=== PATIENT | female | born 1945 | race Caucasian/White ===

== ENCOUNTER → 2016-12-15 | Outpatient (CLI) | payer MEDICARE, OTHER ==
--- NOTE | 2016-12-15 10:31 | RADIOLOGY REPORT (SQ) ---
EXAM DESCRIPTION: MRI HEAD COMBO COMPLETED DATE/TIME: 12/15/2016 9:27 am REASON FOR STUDY: DISORIENTATION/CONFUSION R41.0 DISORIENTATION, UNSPECIFIED COMPARISON: None. TECHNIQUE: Multiplanar imaging includes noncontrasted T1, T2, FLAIR, and Diffusion with ADC map seq uences. Contrast enhanced T1 images. Images stored on PACS. CONTRAST TYPE AND DOSE: 15 mL Multihance. RENAL FUNCTION: GFR > 60. LIMITATIONS: None. FINDINGS: ANATOMY: No anomalies. Normal vascular flow voids. Pituitary fossa normal. CSF SPACES: Normal size and contour. No hemorrhage. CEREBRUM: A few high-signal intensity lesions scattered throughout the white matter on FLAIR imaging with distribution suggesting chronic microvascular ischemic change. Sulci and gyri normal in size and contour. No evidence of hemorrhage, mass or extraaxial fluid collection. No enhancing lesions. POSTERIOR FOSSA: No signal alteration. No hemorrhage. No edema, masses or mass effect. Internal audit ory canals, cerebello-pontine angles, mastoids normal. DIFFUSION: Negative for acute or subacute infarction. ORBITS: No masses. Globes normal. PARANASAL SINUSES: No fluid levels. Mucosa normal. OTHER: No other significant finding. IMPRESSION: NO ENHANCING LESIONS. MINIMAL MICROVASCULAR ISCHEMIC CHANGE. OTHERWISE NORMAL STUDY. EVIDENCE OF ACUTE STROKE: NO. TECHNICAL DOCUMENTATION: JOB ID: [id number] [employer]- All Rights Reserved
== END ==
LOC: RAD 07:57
PROVIDERS: ATTEND Internal Medicine
DX: R41.0 Disorientation, unspecified (principal); R41.82 Altered mental status, unspecified
CPT/HCPCS: 70553; A9577

== ENCOUNTER → 2016-12-21 | Outpatient (CLI) | payer MEDICARE, OTHER ==
--- NOTE | 2016-12-22 09:35 | RADIOLOGY REPORT (SQ) ---
EXAM DESCRIPTION: PET CT SKULL/THIGH COMPLETED DATE/TIME: 12/21/2016 8:18 pm REASON FOR STUDY: SOLITARY PULMONARY NODULE R91.1 SOLITARY PULMONARY NODULE COMPARISON: None. RADIONUCLIDE AND DOSE: 12.0 mCi F18 FDG The route of agent administration: Intravenous FASTING BLOOD SUGAR: 93 mg/dl CONTRAST TYPE AND DOSE: No CT contrast given. TECHNIQUE: Blood glucose level was verified. Above dose of FDG was injected intravenously. 2-D seg mented attenuation correction images were obtained from the base of the skull to the midthighs. Nonc ontrast CT images were obtained for attenuation correction and fusion with emission images. CT image s were performed without oral or intravenous contrast and are not sensitive for parenchymal lesions. A series of overlapping emission PET images were obtained. [facility] by the radiologist. Images stored on PACS. LIMITATIONS: None. FINDINGS: HEAD AND NECK: No areas of abnormal metabolic activity in the soft tissues of the head and neck. CHEST: No areas of abnormal metabolic activity in the chest. Indistinct 1.3 cm ground-glass opacity in the right upper lobe without increased metabolic activity. This could be partial volume averaging through the fissure. No other significant pulmonary lesions. ABDOMEN AND PELVIS: No areas of abnormal metabolic activity in the abdomen or pelvis. Expected physi ologic activity is present in the genitourinary system and bowel. PROXIMAL LOWER EXTREMITIES: No areas of abnormal metabolic activity in the soft tissues of the lower extremities. BONES: No abnormal metabolic activity in the visualized skeleton. ADDITIONAL CT FINDINGS: No additional significant findings on the noncontrast CT images. OTHER: No other significant findings. IMPRESSION: UNREMARKABLE PET SCAN. NO HYPERMETABOLIC LESIONS. FAINT GROUND-GLASS OPACITY IN THE RI GHT LUNG, NON METABOLIC. NO OTHER SIGNIFICANT FINDINGS TECHNICAL DOCUMENTATION: JOB ID: [id number]- All Rights Reserved
== END ==
LOC: RAD 18:00
PROVIDERS: ATTEND Internal Medicine
DX: R91.1 Solitary pulmonary nodule (principal); J98.4 Other disorders of lung
CPT/HCPCS: 78815; A9552

== ENCOUNTER → 2017-12-24 | Outpatient (CLI) | payer MEDICARE, OTHER ==
--- NOTE | 2017-12-24 10:18 | RADIOLOGY REPORT (SQ) ---
EXAM DESCRIPTION: CT CHEST WITH COMPLETED DATE/TIME: 12/24/2017 8:10 am REASON FOR STUDY: PULMONARY NODULE (R91.1) R91.1 SOLITARY PULMONARY NODULE COMPARISON: 12/21/2016 TECHNIQUE: CT scan of the chest performed using helical scanning technique with dynamic intravenous contrast injection. Images reviewed with lung, soft tissue and bone windows. Reconstructed coronal and sagittal MPR images reviewed. All images stored on PACS. All CT scanners at this facility use dose modulation, iterative reconstruction, and/or weight based d osing when appropriate to reduce radiation dose to as low as reasonably achievable (ALARA). [facility]: Dose Right [facility]: CareDose [facility]: Dose Right [facility]: Teradose 4D [facility]: FeedMagnet CONTRAST TYPE AND DOSE: contrast/concentration: Isovue mg/ml; Total Contrast Delivered: 80.0 ml; To zay Saline Delivered: 55.0 ml RENAL FUNCTION: BUN 15, creatinine 0.7 RADIATION DOSE: CT Rad equipment meets quality standard of care and radiation dose reduction techniq ues were employed. CTDIvol: 6.1 mGy. DLP: 243 mGy-cm. . LIMITATIONS: None. FINDINGS: LUNGS AND PLEURA: The ground-glass nodule in the right upper lobe has increased in size. It now measures 16.7 mm. A 2 to 3 mm nodular opacity adjacent to the major fissure is unchanged. No additional findings. HILAR AND MEDIASTINAL STRUCTURES: No identified masses or abnormal nodes. HEART AND VASCULAR STRUCTURES: No aneurysm or dissection. No central pulmonary emboli. No pericardi al effusion. HARDWARE: None in the chest. UPPER ABDOMEN: No significant findings. Limited exam. THYROID AND OTHER SOFT TISSUES: No masses. No adenopathy. BONES: No significant finding. OTHER: No other significant finding. IMPRESSION: The ground-glass opacity in the right upper lobe has increased in size. It now measures 16.7 mm. This showed no abnormal uptake on prior PET. The increase in size is worrisome and repeat PET-CT may be warranted. TECHNICAL DOCUMENTATION: JOB ID: [id number] Quality ID # [id number]: Final reports with documentation of one or more dose reduction techniques (e.g., Au tomated exposure control, adjustment of the mA and/or kV according to patient size, use of iterative reconstruction technique) 2010 [employer]- All Rights Reserved Reading location - IP/workstation name: [email or web address]
== END ==
LOC: RAD 07:44
PROVIDERS: ATTEND Internal Medicine
DX: R91.1 Solitary pulmonary nodule (principal)
CPT/HCPCS: 71260

== ENCOUNTER → 2018-01-03 | Outpatient (CLI) | payer MEDICARE ==
--- NOTE | 2018-01-04 09:13 | RADIOLOGY REPORT (SQ) ---
EXAM DESCRIPTION: PET CT SKULL/THIGH COMPLETED DATE/TIME: 01/03/2018 8:45 pm REASON FOR STUDY: SOLITARY PULMONARY NODULE R91.1 SOLITARY PULMONARY NODULE J98.4 OTHER DISORDERS OF LUNG COMPARISON: 12/21/2016. Correlation: Chest CT 12/24/2017. RADIONUCLIDE AND DOSE: 10.8 mCi F18 FDG The route of agent administration: Intravenous FASTING BLOOD SUGAR: 97 mg/dl CONTRAST TYPE AND DOSE: No CT contrast given. TECHNIQUE: Blood glucose level was verified. Above dose of FDG was injected intravenously. 2-D seg mented attenuation correction images were obtained from the base of the skull to the midthighs. Nonc ontrast CT images were obtained for attenuation correction and fusion with emission images. CT image s were performed without oral or intravenous contrast and are not sensitive for parenchymal lesions. A series of overlapping emission PET images were obtained. Images reviewed and manipulated at [facility] work station by the radiologist. Images stored on PACS. LIMITATIONS: None. FINDINGS: HEAD AND NECK: No areas of abnormal metabolic activity in the soft tissues of the head and neck. CHEST: No areas of abnormal metabolic activity in the chest. ABDOMEN AND PELVIS: No areas of abnormal metabolic activity in the abdomen or pelvis. Expected physi ologic activity is present in the genitourinary system and bowel. PROXIMAL LOWER EXTREMITIES: No areas of abnormal metabolic activity in the soft tissues of the lower extremities. BONES: No abnormal metabolic activity in the visualized skeleton. ADDITIONAL CT FINDINGS: No additional significant findings on the noncontrast CT images. OTHER: No other significant findings. IMPRESSION: Non hypermetabolic ground-glass nodule right upper lobe. TECHNICAL DOCUMENTATION: JOB ID: [id number]- All Rights Reserved Reading location - IP/workstation name: [email or web address]
== END ==
LOC: RAD 17:03
PROVIDERS: ATTEND Internal Medicine
DX: R91.1 Solitary pulmonary nodule (principal); J98.4 Other disorders of lung
CPT/HCPCS: 78815; A9552

== ENCOUNTER → 2018-12-31 | Outpatient (CLI) | payer MEDICARE ==
--- NOTE | 2018-12-31 09:16 | RADIOLOGY REPORT (SQ) ---
EXAM DESCRIPTION: CT CHEST WITHOUT COMPLETED DATE/TIME: 12/31/2018 8:12 am REASON FOR STUDY: SOLITARY PULMONARY NODULE (R91.1), OTHER DISORDERS OF LUNG (J98.4) R91.1 SOLITARY PULMONARY NODULE COMPARISON: 12/24/2017 TECHNIQUE: CT scan performed of the chest without intravenous contrast. Images reviewed with lung, soft tissue and bone windows. Reconstructed coronal and sagittal MPR images reviewed. All images st ored on PACS. All CT scanners at this facility use dose modulation, iterative reconstruction, and/or weight based d osing when appropriate to reduce radiation dose to as low as reasonably achievable (ALARA). [facility]: Dose Right [facility]: CareDose [facility]: Dose Right [facility]: Teradose 4D [facility]: [employer] RADIATION DOSE: CT Rad equipment meets quality standard of care and radiation dose reduction techniq ues were employed. CTDIvol: 6.6 mGy. DLP: 264 mGy-cm. mGy. LIMITATIONS: No technical limitations. FINDINGS: LUNGS AND PLEURA: There is stable size of the 17 mm right upper lobe ground-glass nodule ( series 4, image 55). No new solid components. Unchanged 3 mm nodular opacity along the right major fissure. No new discrete nodules or masses. No focal airspace disease, pleural effusion or pneumoth orax. HILAR AND MEDIASTINAL STRUCTURES: No identified masses or abnormal nodes. No obvious aneurysm. HEART AND VASCULAR STRUCTURES: Scattered coronary atherosclerosis. Normal heart size. Enlarged main and bilateral lobar pulmonary arteries. No aortic aneurysm. UPPER ABDOMEN: Prior cholecystectomy. THYROID AND OTHER SOFT TISSUES: No masses. No adenopathy. BONES: No significant finding. HARDWARE: None in the chest. OTHER: No other significant findings. IMPRESSION: 1. Stable size of the 17 mm right upper lobe ground-glass nodule. No new solid compone nts. No new nodules. No lymphadenopathy. 2. Enlarged pulmonary arteries which can be seen with pulmonary arterial hypertension. TECHNICAL DOCUMENTATION: JOB ID: [id number] Quality ID # [id number]: Final reports with documentation of one or more dose reduction techniques (e.g., Au tomated exposure control, adjustment of the mA and/or kV according to patient size, use of iterative reconstruction technique) 2010 [employer]- All Rights Reserved Reading location - IP/workstation name: [email or web address]
== END ==
LOC: RAD 07:50
PROVIDERS: ATTEND Internal Medicine
DX: R91.1 Solitary pulmonary nodule (principal); J98.4 Other disorders of lung
CPT/HCPCS: 71250

== ENCOUNTER 2020-02-07 16:53 | Emergency (ER) | payer MEDICARE ==
--- NOTE | 2020-02-07 17:10 | ER Document Report ---
ED Medical Screen (RME) - General Chief Complaint: Chest Pain Stated Complaint: CHEST PAIN Primary Care Provider: LORRAINE BOB PA-C [Primary Care Provider] - Follow up as needed TRAVEL OUTSIDE OF THE [place] IN LAST 30 DAYS: No - HPI Notes: 02/07/20 16:56 I was called out to evaluate patient with crushing chest pain in the lobby by a PCT. 74-year-old female presents to the emergency room with complaints of diaphoresis and substernal chest pain that started approximately 20 minutes ago. She reports pain is 4 out of 5, sharp and constant. Patient was going to a restaurant to eat when the chest pain started. Denies any nausea vomiting or diarrhea. She states that she recalls both her parents having cardiac issues in the past. Patient denies any cardiac history, reports she does smoke. Patient went to get stat EKG I have greeted and performed a rapid initial assessment of this patient. A comprehensive ED assessment and evaluation of the patient, analysis of test results and completion of the medical decision making process will be conducted by additional ED providers. PHYSICAL EXAMINATION: GENERAL: Well-appearing, well-nourished and in moderate distress. HEAD: Atraumatic, normocephalic. CV: s1, s2 regular LUNGS: Wheezing in upper lobes Musculoskeletal: Normal range of motion NEUROLOGICAL: Normal speech, normal gait. SKIN: Warm, Dry, normal turgor, no rashes or lesions noted. Diaphoretic Charge nurse, Zamzam, was made aware of patient's chest pain at 1655 - Related Data Allergies/Adverse Reactions: No Known Allergies Allergy (Verified 06/04/12 13:58) Past Medical History - Past Medical History Cardiac Medical History: Reports: Hx Hypertension Denies: Hx Coronary Artery Disease, Hx Heart Attack Pulmonary Medical History: Denies: Hx Asthma, Hx Bronchitis, Hx COPD, Hx Pneumonia Neurological Medical History: Denies: Hx Cerebrovascular Accident, Hx Seizures Musculoskeltal Medical History: Reports Hx Arthritis - fibromyalgia Past Surgical History: Denies: Hx Hysterectomy, Hx Pacemaker - Immunizations Hx Diphtheria, Pertussis, Tetanus Vaccination: Yes Doctor's Discharge - Discharge Referrals: LORRAINE BOB PA-C [Primary Care Provider] - Follow up as needed
[2020-02-07 17:44] LABS: ALBUMIN 4.6 g/dL (3.5-5.0); ALKALINE PHOSPHATASE 97 U/L (38-126); ANION GAP 11 (5-19); ASPARTATE AMINO TRANSFERASE 134 U/L (14-36); BILIRUBIN,DIRECT 0.4 mg/dL (0.0-0.4); BILIRUBIN,TOTAL 0.6 mg/dL (0.2-1.3); BLOOD UREA NITROGEN 18 mg/dL (7-20); CALCIUM 10.3 mg/dL (8.4-10.2); CARBON DIOXIDE 23 mmol/L (22-30); CHLORIDE 105 mmol/L (98-107); CREATINE KINASE 52 U/L (30-135); GLUCOSE 113 mg/dL (75-110); POTASSIUM 3.6 mmol/L (3.6-5.0); TOTAL PROTEIN 7.1 g/dL (6.3-8.2)
[2020-02-07 17:51] LABS: ABSOLUTE BASOPHILS # (AUTO) 0.1 10^3/uL (0.0-0.2); ABSOLUTE EOSINOPHILS # (AUTO) 0.1 10^3/uL (0.0-0.6); ABSOLUTE LYMPHOCYTES (AUTO) 3.3 10^3/uL (0.5-4.7); ABSOLUTE MONOCYTES (AUTO) 0.6 10^3/uL (0.1-1.4); ABSOLUTE NEUT (AUTO) 8.3 10^3/uL (1.7-8.2); BASOPHILS % (AUTO) 0.4 % (0-2); EOSINOPHILS % (AUTO) 1.1 % (0-6); HEMATOCRIT 47.8 % (36.0-47.0); HEMOGLOBIN 16.5 g/dL (12.0-15.5); MEAN CORPUSCULAR HEMOGLOBIN 31.6 pg (27.0-33.4); MEAN CORPUSCULAR HGB CONC 34.5 g/dL (32.0-36.0); MEAN CORPUSCULAR VOLUME 92 fl (80-97); MONOCYTES % (AUTO) 4.5 % (3-13); PLATELET COUNT 308 10^3/uL (150-450); RED BLOOD COUNT 5.22 10^6/uL (3.72-5.28); TOTAL CELLS COUNTED % (AUTO) 100 %; WHITE BLOOD COUNT 12.4 10^3/uL (4.0-10.5)
[2020-02-07] MEDS ORDERED: MORPHINE SULFATE 10 MG/ML INJ IV ONE (17:51)
[2020-02-07] MEDS ORDERED: ONDANSETRON HCL INJ/PF 4 MG/2 ML SDV IV ONE (17:51)
--- NOTE | 2020-02-07 17:55 | ER Document Report ---
ED General - General Chief Complaint: Chest Pain Stated Complaint: CHEST PAIN Time Seen by Provider: 02/07/20 17:11 Primary Care Provider: LORRAINE BOB PA-C [ALLIED HEALTH PROFESSIONAL] - Follow up as needed TRAVEL OUTSIDE OF THE [place] IN LAST 30 DAYS: No - HPI Notes: Patient is a 74-year-old female with a history of hypertension, hyperlipidemia, who presents to the emergency department for evaluation of epigastric pain. She was in the car, on her way to dinner, when she had sudden onset epigastric pain that wrapped around to her entire back. She states it also went into her chest intermittently, points to the substernal region. She describes it as a tight f eeling, intermittently sharp and "jabbing." She states she undid her bra thinking that that might help. She felt dizzy, nauseated, and diaphoretic. Her pain lasted for approximately half an hour, seemed to improve without any sort of intervention. Nothing seemed to make it better or worse to her knowledge. She states she has had similar symptoms in the past, but never this severe. - Related Data Allergies/Adverse Reactions: No Known Allergies Allergy (Verified 06/04/12 13:58) Home Medications: Amlodipine 10mg. Cymba;ta 60mg daily. CpQ10 and Red rice Past Medical History - General Information source: Patient - Social History Smoking Status: Current Every Day Smoker Chew tobacco use (# tins/day): No Drug Abuse: None Family History: CAD, CVA Patient has homicidal ideation: No - Past Medical History Cardiac Medical History: Reports: Hx Hypercholesterolemia, Hx Hypertension Denies: Hx Coronary Artery Disease, Hx Heart Attack Pulmonary Medical History: Denies: Hx Asthma, Hx Bronchitis, Hx COPD, Hx Pneumonia Neurological Medical History: Denies: Hx Cerebrovascular Accident, Hx Seizures Musculoskeletal Medical History: Reports Hx Fibromyalgia Past Surgical History: Reports: Hx Cholecystectomy, Hx Orthopedic Surgery, Hx Tonsillectomy. Denies: Hx Hysterectomy, Hx Pacemaker - Immunizations Hx Diphtheria, Pertussis, Tetanus Vaccination: Yes Review of Systems - Review of Systems Constitutional: See HPI EENT: No symptoms reported Cardiovascular: See HPI Respiratory: No symptoms reported Gastrointestinal: See HPI Genitourinary: No symptoms reported Musculoskeletal: No symptoms reported Skin: No symptoms reported Neurological/Psychological: No symptoms reported Physical Exam - Vital signs Vitals: Pulse Ox 98 02/07/20 17:00 - Notes Notes: Vital signs reviewed, please refer to chart. Head is normocephalic, atraumatic. Pupils equal round, reactive to light. Neck is supple without meningismus. Heart is regular rate and rhythm. Lungs are clear to auscultation bilaterally. Abdomen is soft, nontender, normoactive bowel sounds throughout. Extremities without cyanosis, clubbing. Posterior calves are nontender. Peripheral pulses are equal. Skin is warm and dry. Patient is awake, alert, neurological exam is nonfocal. Course - Re-evaluation Re-evalutation: 02/07/20 22:46 Patient presented emergency department for evaluation of epigastric pain. Laboratory investigations, imaging, monitoring ordered. I was concerned about the possibility of an aortic emergency in this patient. CT scan of the chest, abdomen, pelvis was ordered. Laboratory investigations failed to reveal any significant abnormality. I am awaiting her second troponin. Imaging of the abdomen pelvis did reveal findings suggestive of an intimal flap in the aorta, inferior to the renal arteries. I was concerned about this being an indicator of early dissection in this patient. Her blood pressures have been controlled here. I spoke initially with Jerry Garcia, spoke with Dr. Barton. He was initially consulted, stated that he would accept the patient for evaluation, but was notified by transfer center that they are on regional management and cannot accept the patient. I then contacted [facility]. I was notified by [facility] transfer services that they are on regional management and they are not excepting any transfers. I then spoke to [facility]. I spoke to Dr. Lock, vascular surgeon. This was at 2230. I presented the patient to him, and read the report, although he did not have access to view the images at that time. He stated that it would be an unlikely place for a dissection to begin, but certainly thought it was reasonable for the patient to be transferred to the emergency department to be evaluated by their physician as well as vascular and have the images reviewed there/patient reviewed there. I was then transferred to the ED physician, Dr. Jean Paul Correa. He notifies me that they are on regional management as well, and he cannot accept the patient. He advises that I speak to the vascular surgeon again, once the images are available to him, and further risk stratify this patient. Patient is currently stable. We will continue to monitor. 02/07/20 23:21 Dr. Min is still not able to review the images, but he does accept the patient in transfer to their stepdown status unit. Awaiting a bed assignment. Patient remains stable. 02/08/20 02:20 Patient remains stable. Her blood pressures in the 140s over 60s. She remained stable for transport to [facility] for further evaluation. - Vital Signs Vital signs: Temp Pulse Resp BP Pulse Ox 97.7 F 16 133/75 H 95 02/07/20 17:13 02/08/20 01:01 02/08/20 01:00 02/08/20 01:01 - Laboratory Result Diagrams: 02/07/20 17:18 02/07/20 17:18 Laboratory results interpreted by me: 02/07/20 02/07/20 02/07/20 17:18 17:18 17:18 WBC 12.4 H Hgb 16.5 H Hct 47.8 H Absolute Neuts (auto) 8.3 H Glucose 113 H Calcium 10.3 H AST 134 H ALT 66 H Lipase 377.0 H - Diagnostic Test Radiology reviewed: Image reviewed, Reports reviewed Radiology results interpreted by me: 02/07/20 22:49 Chest X-Ray 02/07/20 16:56 IMPRESSION: NO ACUTE RADIOGRAPHIC FINDING IN THE CHEST. Chest/Abdomen CTA 02/07/20 18:31 IMPRESSION: There is no aortic aneurysm or dissection. There is no pulmonary embolus. Abdomen/Pelvis CTA 02/07/20 18:32 IMPRESSION: 1. No abdominal aortic aneurysm or dissection. However, a small intimal flap cannot be excluded as described above. 2. Diverticulosis coli. 3. 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 Discharge - Discharge Clinical Impression: Epigastric pain, Aortic intimal flap Condition: Stable Disposition: [facility] Admitting Provider: Dr. Lock Referrals: LORRAINE BOB PAMartinaC [ALLIED HEALTH PROFESSIONAL] - Follow up as needed
[2020-02-07 18:00] LABS: CREATINE KINASE MB 0.65 ng/mL (<4.55)
[2020-02-07 18:07] LABS: TROPONIN I < 0.012 ng/mL
--- NOTE | 2020-02-07 18:11 | RADIOLOGY REPORT (SQ) ---
EXAM DESCRIPTION: CHEST 2 VIEWS IMAGES COMPLETED DATE/TIME: 02/07/2020 4:58 pm REASON FOR STUDY: chest pain COMPARISON: CT chest 01/09/2020 EXAM PARAMETERS: NUMBER OF VIEWS: two views TECHNIQUE: Digital Frontal and Lateral radiographic views of the chest acquired. RADIATION DOSE: NA LIMITATIONS: none FINDINGS: LUNGS AND PLEURA: No opacities, masses or pneumothorax. No pleural effusion. MEDIASTINUM AND HILAR STRUCTURES: No masses or contour abnormalities. HEART AND VASCULAR STRUCTURES: Heart normal size. No evidence for failure. BONES: No acute findings. HARDWARE: None in the chest. OTHER: No other significant finding. IMPRESSION: NO ACUTE RADIOGRAPHIC FINDING IN THE CHEST. TECHNICAL DOCUMENTATION: JOB ID: [id number] 2010 [employer]- All Rights Reserved Reading location - IP/workstation name: [email or web address]
--- NOTE | 2020-02-07 19:16 | RADIOLOGY REPORT (SQ) ---
EXAM DESCRIPTION: CTA CHEST IMAGES COMPLETED DATE/TIME: 02/07/2020 7:01 pm REASON FOR STUDY: epigastric and chest pain, eval for dissection COMPARISON: 01/09/2020 TECHNIQUE: CT scan of the chest performed using helical scanning technique with dynamic intravenous contrast injection. Images reviewed with lung, soft tissue and bone windows. Reconstructed coronal and sagittal MPR images reviewed. Additional 3 dimensional post-processing performed to develop Maximal Intensity Projection images (MA P). All images stored on PACS. All CT scanners at this facility use dose modulation, iterative reconstruction, and/or weight based d osing when appropriate to reduce radiation dose to as low as reasonably achievable (ALARA). [facility]: Dose Right [facility]: CareDose [facility]: Dose Right [facility]: Teradose 4D [facility]: [employer] CONTRAST TYPE AND DOSE: 97 mL Omnipaque 350- low osmolar. Contrast bolus adequate for pulmonary arteries and aorta. RENAL FUNCTION: BUN 18 creatinine 0.77 RADIATION DOSE: . LIMITATIONS: None. FINDINGS: LUNGS AND PLEURA: Mild dependent atelectasis. No acute infiltrate or effusion. No mass. AORTA AND GREAT VESSELS: No aneurysm. No dissection. HEART: No pericardial effusion. Moderate to marked coronary artery calcifications. PULMONARY ARTERIES: No emboli visualized in the main pulmonary arteries or the segmental branches. HILAR AND MEDIASTINAL STRUCTURES: No identified masses or abnormal nodes. HARDWARE: None in the chest. UPPER ABDOMEN: See separate report of the CT of the abdomen. THYROID AND OTHER SOFT TISSUES: No masses. No adenopathy. BONES: Scoliosis. 3D MIPS: Confirm above findings. OTHER: No other significant finding. IMPRESSION: There is no aortic aneurysm or dissection. There is no pulmonary embolus. COMMENT: Quality ID # [id number]: Final reports with documentation of one or more dose reduction techniques (e.g., Automated exposure control, adjustment of the mA and/or kV according to patient size, use of iterative reconstruction technique) TECHNICAL DOCUMENTATION: JOB ID: [id number] 2010 [employer]- All Rights Reserved Reading location - IP/workstation name: [email or web address]
--- NOTE | 2020-02-07 19:28 | RADIOLOGY REPORT (SQ) ---
EXAM DESCRIPTION: CTA ABDOMEN/PELVIS W WO IMAGES COMPLETED DATE/TIME: 02/07/2020 7:01 pm REASON FOR STUDY: epigastric pain, eval for dissection COMPARISON: None. TECHNIQUE: CT scan of the abdominal aorta extending to the iliac bifurcation performed with intraven ous contrast using helical scanning technique with dynamic intravenous contrast injection. Images rev iewed with lung, soft tissue, and bone windows. Reconstructed coronal and sagittal MPR images reviewe d. All images stored on PACS. Advanced 3D imaging as volume rendering, MIPS, SSD performed? yes All CT scanners at this facility use dose modulation, iterative reconstruction, and/or weight based d osing when appropriate to reduce radiation dose to as low as reasonably achievable (ALARA). [facility]: Dose Right [facility]: CareDose [facility]: Dose Right [facility]: Teradose 4D [facility]: [employer] CONTRAST TYPE AND DOSE: contrast/concentration: Isovue 350.00 mmol/ml; Total Contrast Delivered: 97. 1 ml; Total Saline Delivered: 43.9 ml RENAL FUNCTION: BUN 18 creatinine 0.77 LIMITATIONS: None. FINDINGS: AORTA AND VESSELS: no aneurysm. Cannot exclude a small intimal flap just below the origin s of the renal arteries. See image 127 series 3 LUNG BASES: See separate report for CTA of the chest. LIVER: No masses or dilated ducts. SPLEEN: Normal size. No focal lesions. PANCREAS: No masses. No significant calcifications. No adjacent inflammation or peripancreatic fluid collections. Pancreatic duct not dilated. GALLBLADDER: Surgically absent. ADRENAL GLANDS: No significant masses or asymmetry. RIGHT KIDNEY AND URETER: No mass, calculi or urinary tract obstruction. LEFT KIDNEY AND URETER: No mass, calculi or urinary tract obstruction. RETROPERITONEUM: No retroperitoneal adenopathy, hemorrhage or masses. BOWEL AND PERITONEAL CAVITY: Mild descending and sigmoid diverticulosis with no acute inflammation. APPENDIX: Not identified. PELVIS: The urinary bladder is incompletely distended but otherwise normal. No pelvic mass or fluid collection. ABDOMINAL WALL: No hernias. BONY STRUCTURES: Mild degenerative joint changes in the hips. 3-D IMAGING: Confirms the above findings. OTHER: No other significant finding. IMPRESSION: 1. No abdominal aortic aneurysm or dissection. However, a small intimal flap cannot be excluded as described above. 2. Diverticulosis coli. 3. 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 TECHNICAL DOCUMENTATION: JOB ID: [id number] Quality ID # [id number]: Final reports with documentation of one or more dose reduction techniques (e.g., Au tomated exposure control, adjustment of the mA and/or kV according to patient size, use of iterative reconstruction technique) 2010 [employer]- All Rights Reserved Reading location - IP/workstation name: [email or web address]
--- NOTE | 2020-02-08 00:57 | EKG REPORT ---
SEVERITY:- ABNORMAL ECG - SINUS RHYTHM PROBABLE LEFT ATRIAL ABNORMALITY NONSPECIFIC INTRAVENTRICULAR CONDUCTION DELAY : Confirmed by: Burt Penny 08-Feb-2020 00:56:36
[2020-02-08 02:26] VITALS: BP 127/72
== END 2020-02-08 02:26 | disposition short-term general hospital (02) ==
LOC: ER 16:53
DX: R10.13 Epigastric pain (principal); R07.9 Chest pain, unspecified; R61 Generalized hyperhidrosis; R42 Dizziness and giddiness; I10 Essential (primary) hypertension
CPT/HCPCS: 93005; 99285; 96374; 96375; 36415; 82553; 82550; 83690; 85025; 80053; 84484; 71046; 71275; 74174; 93010; J2270; J2405